=== PATIENT | male | born 1965 | race Caucasian/White ===

== ENCOUNTER 2019-01-01 09:49 | Outpatient (CLI) | payer OTHER ==
--- NOTE | 2019-01-07 21:24 | CONSULTATION REPORT ---
SUBJECTIVE: Prashant Phelps is a 53-year-old diabetic male presenting to the clinic today as a referral from Nancy Magdaleno. The patient states that he has a right great toe that is very discolored, long and thick as well as a left great toenail that has been a little bit painful at times on the medial border. He would like to have these evaluated and is willing to begin regular every 3 month visits for diabetic foot check and nail care as he states he is unable to do his nails anymore because they are too thick. He does not admit to any fevers, chills, nausea, vomiting, shortness of breath or chest pain at this time. OBJECTIVE: Vitals: Temperature 97.9 degrees Fahrenheit, heart rate 91, respiration rate 18, blood pressure 117/77. O2 saturation is 95% on room air. Vascular: 2+ DP and PT pulses, bilaterally. Capillary refill time is less than 3 seconds to the toes bilaterally. No obvious varicose veins noted. No edema bilaterally. Dermatologic: The right great toenail is severely yellow, discolored, thick and long. The remaining nails are also long and thick. The left great toenail medial border appears to have quite a bit of subungual debris in the medial distal corner. There is no erythema, malodor, purulence or open wounds noted bilateral feet. Musculoskeletal: There is no pain on palpation noted on the left great toe medial border at all at this time. There are no gross abnormalities noted, bilateral feet. 5/5 muscle strength about the ankle and subtalar joint bilaterally. Neurologic: Light touch sensation is intact to bilateral feet to the toes. ASSESSMENT AND PLAN: 1. Onychocryptosis left hallux medially. 2. Onychomycosis right hallux. 3. Dermatophytosis, bilateral feet. 4. Cirrhosis of the liver. 5. Diabetes mellitus type 2. PROCEDURE #1: Debridement of nails #1 through #5 bilateral feet was performed with nail nippers today including a slant back procedure of the left great toenail medial distal border and I was able to also clean out some of the subungual debris in that area which I believe will bring some relief that he is probably feeling. I did not see any obvious incurvation of the nail in that medial distal edge. The patient tolerated the procedure well. The patient knows that if the pain returns to the left hallux we will need to look at his A1C and if it is okay, then we will consider doing a procedure to do a partial nail avulsion with or without chemical matrixectomy on that left great toenail medial border. Otherwise we will plan on seeing the patient every 3 months for nails and callus care as needed. The patient has no further questions or concerns at this time. We discussed the possibility of using oral Lamisil generic, however, due to the cirrhosis of the liver I am unable to prescribe this at this time. [facility] office faxed over results of recent labs done yesterday which we gave to the patient for his information today. There was no A1C noted on the labs so I am unsure as to his level of control at this time. Return to the clinic in 3 months for nails and callus care, and diabetic foot checks. The patient had no further questions and we will see him in 3 months. Kyle Torres.P.M. (Dictated/Not Signed) Radha Job#: [id number] [id number]
== END 2019-01-01 09:50 ==
LOC: POD 09:49
PROVIDERS: ATTEND Podiatrist Foot & Ankle Surgery
DX: L60.0 Ingrowing nail (principal); E11.628 Type 2 diabetes mellitus with other skin complications; B35.1 Tinea unguium; K74.60 Unspecified cirrhosis of liver
CPT/HCPCS: 11720; 99212; A4554